=== PATIENT | male | born 1940 | race Caucasian/White ===

== ENCOUNTER 2019-05-11 07:54 | Inpatient (IN) | payer MEDICARE, OTHER, SELFPAY ==
[2019-05-11] VITALS (22 sets, daily range): BP systolic 117–167; BP diastolic 62–95; PULSE 57–80; RESP 16–20; TEMP 36.4–36.9; O2SAT 95–100; BMI 24.0
--- NOTE | ~2019-05-11 | NM_ITS ---
EXAMINATION: NM bone scan whole body DATE: 05/13/2019 15:41 INDICATION: Prostate cancer. Bone pain. TECHNIQUE: 25.4 mCi Tc-99m HDP was administered intravenously. Delayed whole-body scintigrams were o btained. COMPARISON: CT studies dated 05/29/2019 and 09/19/2018 and bone scan and CT dated 11/22/2011 FINDINGS: There is a small region of mild increased uptake at the left side of the L2 vertebral body with subtl e approximately 2.5 cm diameter region of increased sclerosis which appears new since the prior studi es concerning for metastatic disease. There are multiple foci of mild to moderate likely degenerative joint centered uptake including at the sternomanubrial articulation and bilateral sternoclavicular j oints, radial aspect of the bilateral carpi, bilateral first metacarpophalangeal joints and several j oints of the bilateral mid feet. Additional foci of increased uptake at the right elbow and posterior right calcaneus likely related to enthesopathy. Uptake anteriorly at the lower cervical spine likely related to severe degenerative disc disease as seen on CT. No other suspicious bone lesions identifi ed. Activity is seen along the peripheral IV at the left antecubital fossa. IMPRESSION: 1. New region of mildly mildly increased bone activity associated with a subtle sclerotic lesion at t he left side of the L2 vertebral body suspicious for metastatic disease. This would affect clinical m anagement could consider contrast-enhanced lumbar spine MRI for more definitive determination. Reviewed, dictated and finalized at location A. ER IMPRESSION: 1. New region of mildly mildly increased bone activity associated with a subtle sclerotic lesion at the left side of the L2 vertebral body suspicious for meta static disease. This would affect clinical management could consider contrast-e nhanced lumbar spine MRI for more definitive determination.
--- NOTE | ~2019-05-11 | CT_ITS ---
EXAMINATION: CTA chest PE protocol DATE: 05/11/2019 22:41 INDICATION: Left upper chest pain. TECHNIQUE: Computed tomography angiography (CTA) of the chest was performed with 100 mL Omnipaque-350 intravenous contrast timed to evaluate the pulmonary arteries. Coronal maximum intensity projection 3D-reconstructions were created by the technologist. Automated exposure control and iterative reconst ruction technique were employed. The dose-length product was 382.56 mGy-cm. COMPARISON: Chest CT 05/11/2019 FINDINGS: The lungs demonstrate mild atelectasis. Calcified lung nodules and calcified hilar and medi astinal lymph nodes are consistent with old granulomatous disease. No pleural effusion. There are morgan nges of right hemithyroidectomy. The heart size is normal. There are coronary artery calcifications. There is a small pericardial effusion. There is no pulmonary embolus. There are cysts in the liver me asuring up to 3.8 cm. There is contrast in the gallbladder. There is a small sliding hiatal hernia. C alcifications in the spleen are consistent with old granulomatous disease. There is confluent aortoca lisandro and left para-aortic lymphadenopathy. There is mild thoracic spondylosis. IMPRESSION: 1. No pulmonary embolus. 2. Small pericardial effusion. 3. Abdominal lymphadenopathy, consistent with metastatic disease. 4. Small sliding hiatal hernia. Reviewed, dictated and finalized at location A. RCHANGE AGENT
--- NOTE | ~2019-05-11 | XR_ITS ---
EXAMINATION: XR chest 2V 05/11/2019 08:22 INDICATION: Chest pain PROCEDURE: PA and lateral views of the chest COMPARISON: 12/17/2017 FINDINGS: The lungs are clear. The cardiomediastinal silhouette is within normal limits. There are no pleural effusions. There is no pneumothorax suspected. IMPRESSION: 1: NO ACUTE CARDIOPULMONARY DISEASE. Reviewed, dictated and finalized at location A. STORE DEMONSTRATOR
--- NOTE | ~2019-05-11 | CT_ITS ---
EXAMINATION: CTA chest abdomen pelvis DATE: 05/11/2019 09:04 MANAGER LOGISTIC INDICATION: Chest pain. Thoracic dissection. TECHNIQUE: Computed tomographic angiography (CTA) of the chest, abdomen, and pelvis was performed wit hout and with 100 mL Omnipaque-350 intravenous contrast. The dose-length product was 670.46 mGy-cm. M aximum intensity projection 3D-reconstructions of the aorta and other arteries were constructed by hector min technologist on a separate workstation. Automated exposure control and iterative reconstruction yesenia hnique were employed. COMPARISON: CT dated 09/19/2018 FINDINGS: CHEST, ABDOMEN AND PELVIS CTA: Bibasilar dependent atelectasis. Stable 4 mm right lower lobe nodule, image 65, likely benign. No foc al airspace consolidation. No evidence for aortic aneurysm or dissection. There are multiple low-dens ity lesions in the liver, compatible with cysts. Gallbladder is present. There is heterogeneous enhan cement of the spleen, likely related to the timing of contrast bolus. There has been progression of s ignificant retroperitoneal lymphadenopathy which encases the celiac axis and SMA as well as the renal arteries. There is mild right renal atrophy. There are are subcentimeter hypodensities of the left k idney, most likely benign cysts. There are radiation therapy implant seeds in the prostate bed. Bowel pattern is nonobstructive. No evidence for diverticulitis or diverticulosis. There is heterogeneous enhancing soft tissue above the radiation therapy implant seeds, suspicious for metastatic disease. T here are mildly enlarged pelvic lymph nodes along the iliac chains. IMPRESSION: 1. There has been progression of retroperitoneal lymphadenopathy and pelvic, consistent with metastat ic disease. There is encasement of the aorta, celiac axis, SMA and renal arteries. 2: Probable local tumor spread just superior to the radiation therapy implant seeds in the prostate b ed. Reviewed, dictated and finalized at location A. GER LOGISTIC IMPRESSION: 1. There has been progression of retroperitoneal lymphadenopathy and pelvic, co nsistent with metastatic disease. There is encasement of the aorta, celiac axis , SMA and renal arteries. 2: Probable local tumor spread just superior to the radiation therapy implant s eeds in the prostate bed.
--- NOTE | 2019-05-11 07:59 | ECG_ITS ---
Measurements Intervals [place] Rate: 79 P: 40 WI: 186 QRS: 16 QRSD: 91 T: 80 QT: 399 QTc: 459 Interpretive Statements SINUS RHYTHM BORDERLINE ST-T WAVE ABNORMALITY- LATERAL LEADS BORDERLINE ECG Electronically Signed On 05-11-2019 8:06:05 MAST MAKER by Al Briones D.O.
--- NOTE | 2019-05-11 08:03 | ED.CHESTPAIN ---
HPI - Chest Pain General Chief Complaint: Chest Pain Stated Complaint: cp Time Seen by Provider: 05/11/19 08:07 Source: patient Mode of arrival: ambulatory Limitations: no limitations History of Present Illness HPI narrative: A 79 y/o male presents to the ED with c/o left sided CP. Pt states that 30 minutes prior to his ED arrival, the left sided CP started while he was lying in bed. The CP is rated a 5/10 in severity. He reports SOB, lower back pain, decreased food intake, and ABD pain, but denies N/V. Pt notes that the back pain and ABD pain started the evening of 05/09/19 after playing golf and adds that he regularly plays golf. Pt states that he has had back pain and ABD pain intermittently for years, but this episode is lasting longer than normal. He has been seen for the ABD pain previously, but he did not receive a diagnosis. The lower back pain is described as sharp, squeezing, and aching and is slightly alleviated with a heating pad. Movement aggravates the lower back pain. He has a PMHx of prostate cancer, HTN, hyperlipidemia, and partial thyroidectomy. MD complaint: chest pain (Left sided) Onset (ago): minute(s) (30 prior to arrival) Timing of current episode: constant Onset: during rest Pain location: left chest Pain scale (0-10): 5 Associated symptoms: dyspnea and other (Lower back pain, ABD pain, decreased food intake) Risk Factors Coronary artery disease risk factors: smoking history (Former), hyperlipidemia and hypertension Related Data Home Medications Medication Instructions Recorded Confirmed lisinopril 5 mg tablet 5 mg PO HS 04/18/19 05/11/19 Xtandi 160 mg PO QPM 05/11/19 05/11/19 famotidine [Pepcid AC] 20 mg PO HS 05/11/19 05/11/19 terazosin 5 mg PO HS 05/11/19 05/11/19 Allergies Allergy/AdvReac Type Severity Reaction Status Date / Time lidocaine Allergy Unknown Unknown Verified 05/11/19 11:23 methylprednisolone Allergy Unknown Unknown Verified 05/11/19 11:23 LOCALANESTHETIC Allergy Unknown ALL LIZ Uncoded 05/11/19 08:09 CAUSE DECREASE BP, HR, SYNCOPE Review of Systems Review of Systems: All systems reviewed & are unremarkable except as noted in HPI and below Constitutional: Constitutional: Reports other (Decreased food intake) Cardiovascular: Cardiovascular: Reports chest pain (Left sided) Respiratory: Respiratory: Reports dyspnea Gastrointestinal: Gastrointestinal: Reports abdominal pain, Denies nausea and Denies vomiting Musculoskeletal: Musculoskeletal: Reports back pain (Lower) [facility] Past Medical History Medical History (Updated 05/12/19 @ 13:55 by Kendra Barrera PA-C) Elevated TSH GERD (gastroesophageal reflux disease) History of radiation therapy Seed implant 2013 Hypercalcemia Hyperlipidemia Hyperparathyroidism Hypertension Osteoporosis Pericardial effusion Prostate cancer Surgical History Surgical History History of thyroid surgery Partial thyroid removal. 08/2018 History of tonsillectomy Family History Family History Mother Family history of Alzheimer's disease Sibling Stomach cancer Cerebrovascular accident Type 2 diabetes mellitus Father Hypertension Hyperlipidemia Type 2 diabetes mellitus Kidney disease Social History Social History Smoking status: Former smoker Second hand tobacco smoke exposure: No Smoking end date: 04/09/1963 Alcohol intake: current Drinks per week: 5 Substance use: never Gender identity (if verbalized by the patient): Male Spiritual care concerns: Yes (Sikhism) Agree to blood products: Yes Course Consultations Consultation #1: Discussed case with the hospitalist Dr. King. They accept admission. Date: 05/11/19 Time: 10:54 Vital Signs Vital signs: Vital Signs Temperature 36.4 C 05/11/19 08:00 Pulse Rat
[2019-05-11] MEDS: ASPIRIN 81 MG CHEWABLE TABLET 324 MG PO (08:20)
[2019-05-11] MEDS: NITROGLYCERIN SL 0.4 MG TABLET SUBLINGUAL (08:25)
--- NOTE | 2019-05-11 08:25 | PC.NURSE ---
Nitro 0.4 given SL at this time, VS 80 NM, 18 RR, 99% on room air and BP 163/89. Rates pain 5/10.
[2019-05-11] MEDS: ONDANSETRON INJ 4 MG/2 ML VIAL IV PUSH (08:27)
[2019-05-11] MEDS: METOPROLOL TARTRATE INJ 5 MG/5 ML VIAL IV PUSH (08:27)
[2019-05-11] MEDS: MORPHINE SULFATE 2 MG/ML INJ 4 MG IV PUSH (08:30)
--- NOTE | 2019-05-11 08:30 | PC.NURSE ---
Patient continues to rate pain 5/10 at this time after first dose of nitro, VS 69 MD, 18 RR, 98% on room air and BP 102/67. Dr. Khanna notified and verbal order recieved to administer 500 ml NS bolus, do not given any more nitro at this time.
[2019-05-11 08:33] LABS: Basophils Percent Auto 0.2 % (0.2-1.2); Eosinophils Percent Auto 0.3 % (0-4.4); Hematocrit 40.1 % (42.0-52.0); Hemoglobin 13.9 g/dL (14.0-18.0); Immature Granulocyte Absolute 0.03 K/mm3 (0.00-0.031); Immature Granulocyte Percent A 0.5 % (0-0.5); Lymphocytes Absolute Auto 0.91 K/mm3 (0.9-3.2); Lymphocytes Percent Auto 15.3 % (18.3-44.2); Mean Corpuscular HGB Conc 34.7 g/dl (32-36); Mean Corpuscular Hemoglobin 30.8 pg (26-34); Mean Corpuscular Volume 88.9 fl (80-100); Mean Platelet Volume 9.7 fl (7.4-10.4); Monocytes Absolute Auto 0.5 K/mm3 (0.1-0.6); Monocytes Percent Auto 8.9 % (2.6-8.5); Neutrophils Absolute Auto 4.5 K/mm3 (1.3-6.7); Neutrophils Percent Auto 74.8 % (45.5-73.1); Platelet Count Result 169 k/mm3 (150-375); Red Blood Count 4.51 M/mm3 (4.6-6.20); Red Cell Distribution Width 11.6 % (11.5-14.5)
[2019-05-11 08:38] LABS: INR 1.1; Prothrombin Time 13.4 Seconds (11.1-14.7)
[2019-05-11 08:39] LABS: Partial Thromboplastin Time 24.6 SECONDS (22.3-36.8)
[2019-05-11 08:40] LABS: Blood Urea Nitrogen 21 mg/dL (9-20); Calcium 10.7 mg/dL (8.4-10.2); Carbon Dioxide 25 mmol/L (22-30); Chloride 100 mmol/L (98-107); Estimated CRCL calculation 65 ml/min; Estimated Glomerular Filt Rate > 60; Glucose 112 mg/dL (75-110); Sodium 135 mmol/L (137-145)
[2019-05-11] MEDS: SODIUM CHLORIDE 0.9% IV 500 ML (08:42)
[2019-05-11 08:45] LABS: Alanine Aminotransferase 11 U/L (4-50); Albumin Level 3.8 g/dL (3.5-5.1); Alkaline Phosphatase 87 U/L (38-126); Aspartate Amino Transferase 22 U/L (17-59); Bilirubin,Total 0.9 mg/dL (0.2-1.3)
[2019-05-11 08:47] LABS: Blood Urea Nitrogen 19 mg/dL (8-26); Estimated CRCL calculation 59 ml/min; Estimated Glomerular Filt Rate > 60
[2019-05-11 08:52] LABS: Troponin I < 0.012 ng/mL (0.000-0.034)
[2019-05-11 09:16] LABS: Add Urine Microscopic? YES; Appearance Urine Clear (Clear); Bilirubin Urine Negative (Negative); Blood Urine Negative (Negative); Color Urine Yellow (Yellow); Glucose Urine UA Negative (Negative); Ketones Urine 1+ mg/dL (Negative); Leukocyte Esterase Ur Negative LEU/UL (Negative); Mucus Urine Few /lpf; Nitrate Urine Negative (Negative); Protein Urine Negative (Negative); RBC Urine 0-2 /hpf (0-2); Specific Grav Ur 1.028 (1.001-1.035); Urobilinogen Urine Negative mg/dL (<2.0); WBC Urine 0-3 /hpf
[2019-05-11] MEDS: MORPHINE SULFATE 4 MG/ML INJ IV PUSH (10:12)
--- NOTE | 2019-05-11 10:28 | PC.NURSE ---
Pulse ox noted to be 84% on room air after administering morphine, placed patient on oxygen 2 Li NC at this time with current oxygen level of 95% at this time.
--- NOTE | 2019-05-11 11:05 | ADMGEN ---
This patient, Steve Ritter, was admitted to IMU Room 202-. Patient/family oriented to hospital policies and general routines including ID bracelet, bed and alarms, visiting hours, pain management, procedures, bathroom and other care routines, personal items, smoking policy, room service/diet, and visiting hours. Valuables list has been completed. Information on how to activate the Rapid Response Team has been discussed. Patient/Family are encouraged to report perceived risks to care and to ask questions if they do not understand what they are told or what they should do.
[2019-05-11 12:25] LABS: Troponin I < 0.012 ng/mL (0.000-0.034)
[2019-05-11] MEDS: ENOXAPARIN 80 MG/0.8 ML SYRINGE SUB-Q (12:55)
--- NOTE | 2019-05-11 12:59 | ECG_ITS ---
Measurements Intervals [place] Rate: 68 P: 52 SC: 216 QRS: 33 QRSD: 93 T: 67 QT: 423 QTc: 451 Interpretive Statements SINUS RHYTHM WITH FIRST DEGREE AV BLOCK BORDERLINE ST-T WAVE ABNORMALITY- LATERAL LEADS ABNORMAL ECG Electronically Signed On 05-11-2019 14:22:38 TECHNOLOGIST DEVELOPMENT by Al Briones D.O.
[2019-05-11] MEDS: HYDROMORPHONE HCL 1 MG/ML INJ 0.5 MG IV PUSH ×3 (14:44→22:12)
[2019-05-11 15:07] LABS: Troponin I < 0.012 ng/mL (0.000-0.034)
--- NOTE | 2019-05-11 21:05 | ECG_ITS ---
Measurements Intervals [place] Rate: 74 P: 45 TN: 195 QRS: 14 QRSD: 90 T: 45 QT: 406 QTc: 451 Interpretive Statements SINUS RHYTHM VENTRICULAR PREMATURE COMPLEX NONSPECIFIC T-WAVE ABNORMALITY- INF/LAT LEADS BASELINE ARTIFACT- I, III BORDERLINE ECG Electronically Signed On 05-12-2019 9:04:15 DIRECTOR OUTCOMES by Al Briones D.O.
[2019-05-11 21:39] LABS: Lipase 209 U/L (23-300)
[2019-05-11 21:40] LABS: D Dimer 1.54 ug/mL (<0.48)
--- NOTE | 2019-05-11 22:08 | PM.IMHP ---
H&P: HPI History of Present Illness Chief complaint: chest pain/prostatic cancer w intra abdominal mest Narrative: This is a 79-year-old male with known metastatic prostate cancer that was originally diagnosed in 2003 for which he follows up with Urology, Dr. Colon at [facility] and who presented to our hospital with sharp left-sided chest pain earlier today. The patient describes that his chest pain started while he was laying in bed and seems to worsen with deep breathing although it does not radiate anywhere. He denies any associated nausea, diaphoresis, shortness of breath, or lightheadedness. The patient also complains that he is having diffuse abdominal and lower back pain which he states his chronic. He has had intermittent diffuse abdominal pain as well as low back pain over the past few years. The patient denies any previous history of heart disease or previous myocardial infarctions. His last stress test was last year and he has never had a cardiac angiogram done before. The patient was evaluated emergency room today and routine labs were obtained. Negative and EKG is unremarkable. The patient continues to have left-sided chest pain and has required multiple doses of IV narcotic medication for pain control tonight. Demonstrated worsening metastatic disease. The patient has been admitted for cardiac rule out. He denies any other symptoms at this time. Review of Systems Review of Systems: All systems reviewed & are unremarkable except as noted in HPI and below PMFSH Past Medical History Medical History Elevated TSH GERD (gastroesophageal reflux disease) History of radiation therapy Seed implant 2013 Hypercalcemia Hyperlipidemia Hyperparathyroidism Hypertension Osteoporosis Prostate cancer Surgical History Surgical History History of thyroid surgery Partial thyroid removal. 08/2018 History of tonsillectomy Family History Family History Mother Family history of Alzheimer's disease Sibling Stomach cancer Cerebrovascular accident Type 2 diabetes mellitus Father Hypertension Hyperlipidemia Type 2 diabetes mellitus Kidney disease Social History Social History Smoking status: Former smoker Second hand tobacco smoke exposure: No Smoking end date: 04/09/1963 Alcohol intake: current Drinks per week: 5 Substance use: never Gender identity (if verbalized by the patient): Male Spiritual care concerns: Yes (Sikh) Agree to blood products: Yes Meds Home Medications and Allergies Home Medications Medication Instructions Recorded Confirmed Type lisinopril 5 mg tablet 5 mg PO HS 04/18/19 05/11/19 History enzalutamide [Xtandi] 160 mg PO QPM 05/11/19 05/11/19 History famotidine [Pepcid AC] 20 mg PO HS 05/11/19 05/11/19 History terazosin 5 mg PO HS 05/11/19 05/11/19 History Allergies Allergy/AdvReac Type Severity Reaction Status Date / Time lidocaine Allergy Unknown Unknown Verified 05/11/19 11:23 methylprednisolone Allergy Unknown Unknown Verified 05/11/19 11:23 LOCALANESTHETIC Allergy Unknown ALL LIZ Uncoded 05/11/19 08:09 CAUSE DECREASE BP, HR, SYNCOPE Vital Signs Vital Signs - 24 hr 05/11/19 08:00 05/11/19 08:10 05/11/19 08:27 Temperature 36.4 C Pulse Rate 79 78 80 Respiratory Rate 17 Blood Pressure 167/94 H Pulse Oximetry 99 05/11/19 09:03 05/11/19 09:05 05/11/19 09:39 Temperature 36.4 C Pulse Rate 57 L 62 Respiratory Rate 18 16 Blood Pressure 134/70 154/85 H Pulse Oximetry 100 100 05/11/19 10:12 05/11/19 10:45 05/11/19 11:00 Temperature 36.4 C Pulse Rate 62 63 Respiratory Rate 17 16 Blood Pressure 153/79 H 148/75 H Pulse Oximetry 96 95 05/11/19 11:21 05/11/19 12:00 05/11/19
[2019-05-12] VITALS (11 sets, daily range): BP systolic 133–146; BP diastolic 67–81; PULSE 71–99; RESP 12–20; TEMP 36.6–36.9; O2SAT 97–98
[2019-05-12] MEDS: ENOXAPARIN 80 MG/0.8 ML SYRINGE SUB-Q (00:34)
[2019-05-12] MEDS: HYDROMORPHONE HCL 1 MG/ML INJ 0.5 MG IV PUSH ×4 (04:19→18:10)
[2019-05-12 05:12] LABS: Basophils Percent Auto 0.1 % (0.2-1.2); Hematocrit 39.2 % (42.0-52.0); Hemoglobin 13.3 g/dL (14.0-18.0); Immature Granulocyte Absolute 0.04 K/mm3 (0.00-0.031); Immature Granulocyte Percent A 0.5 % (0-0.5); Lymphocytes Absolute Auto 0.98 K/mm3 (0.9-3.2); Mean Corpuscular HGB Conc 33.9 g/dl (32-36); Mean Corpuscular Hemoglobin 30.7 pg (26-34); Mean Corpuscular Volume 90.5 fl (80-100); Monocytes Absolute Auto 0.9 K/mm3 (0.1-0.6); Monocytes Percent Auto 11.4 % (2.6-8.5); Neutrophils Absolute Auto 5.7 K/mm3 (1.3-6.7); Platelet Count Result 167 k/mm3 (150-375); Red Blood Count 4.33 M/mm3 (4.6-6.20); Red Cell Distribution Width 11.7 % (11.5-14.5); White Blood Count 7.5 K/mm3 (4.5-10.0)
[2019-05-12 05:24] LABS: Blood Urea Nitrogen 22 mg/dL (9-20); Calcium 10.3 mg/dL (8.4-10.2); Carbon Dioxide 28 mmol/L (22-30); Chloride 101 mmol/L (98-107); Estimated CRCL calculation 59 ml/min; Estimated Glomerular Filt Rate > 60; Glucose 98 mg/dL (75-110); Sodium 137 mmol/L (137-145)
--- NOTE | 2019-05-12 06:00 | ECG_ITS ---
Measurements Intervals [place] Rate: 78 P: 48 VT: 187 QRS: 31 QRSD: 89 T: 78 QT: 390 QTc: 445 Interpretive Statements SINUS RHYTHM BORDERLINE ST-T WAVE ABNORMALITY- DIFFUSE LEADS BASELINE ARTIFACT- AVR, AVL, AVF BORDERLINE ECG Electronically Signed On 05-12-2019 9:38:36 COFFEE ROASTER HELPER by Al Briones D.O.
--- NOTE | 2019-05-12 08:44 | ECHO_ITS ---
Patient Info Name: Steve Ritter Age: 79 years : 1940 Gender: Male Ht: 72 in Wt: 178 lbs BSA: 2.03 m2 HR: 75 bpm BP: 133 / 72 mmHg Heart Rhythm: Sinus Rhythm Technical Quality: Fair Exam Date: 05/12/2019 9:56 AM Exam Location: [facility] Patient Status: Inpatient Admit Date: 05/11/2019 Staff Ordering Physician: Aris Lin MD Crisis Counselor: Stevie Moyer RDCS Attending Provider: Kendra Barrera PA-C Referring Physician: Riley CRAR; Exam Type: CA echo doppler color flow Study Info Indications I31.3 - Pericardial effusion (noninflammatory) Complete two-dimensional, color flow and Doppler transthoracic echocardiogram is performed. History/Risk Factors Pericardial effusion; prostatce cancer, chest pain, HTN. Summary 1. Left ventricular chamber dimension is normal. 2. Left ventricular systolic function is normal, estimated at 65-70%. 3. There is mildly increased left ventricular wall thickness. 4. Left ventricular septal wall motion is normal. 5. The left ventricular diastolic function is grade I diastolic dysfunction. 6. Left atrial chamber dimension is mildly enlarged. 7. There is mild mitral valve regurgitation. 8. There is mild tricuspid valve regurgitation. 9. There is small pericardial effusion. Left Ventricle Left ventricular chamber dimension is normal. Left ventricular systolic function is normal, estimated at 65-70%. There is mildly increased left ventricular wall thickness. Left ventricular septal wall motion is normal. The left ventricular diastolic function is grade I diastolic dysfunction. Right Ventricle Right ventricular chamber dimension is normal. Right ventricular systolic function is normal. Left Atria Left atrial chamber dimension is mildly enlarged. Right Atria Right atrial chamber dimension is normal. Aortic Valve The aortic valve is trileaflet. There is mild aortic valve sclerosis. There is no aortic valve stenosis. There is trace aortic valve regurgitation. Pulmonic Valve The pulmonic valve is not well visualized. There is no pulmonic valve stenosis. There is trace pulmonic regurgitation. Mitral Valve The mitral valve has calcified annulus. There is no mitral valve stenosis. There is mild mitral valve regurgitation. Tricuspid Valve The tricuspid valve leaflets are normal. There is no significant tricuspid valve stenosis. There is mild tricuspid valve regurgitation. No pulmonary hypertension, estimated pulmonary arterial systolic pressure is 32 mmHg. Pericardium/Pleural The pericardium appears normal. There is small pericardial effusion. Aorta The aortic root size at the sinus of Valsalva is normal. Left Ventricular Outflow Tract Name Value Normal LVOT 2D LVOT Diameter 2.0 cm LVOT Doppler LVOT Peak Gradient 5 mmHg LVOT Mean Gradient 2 mmHg LVOT VTI 20 cm LVOT VTI/AV VTI Ratio 0.8 LVOT Stroke Volume 61 ml LVOT CO
--- NOTE | 2019-05-12 08:44 | PM.CNCAR ---
Assessment and Plan Assessment and plan (1) Hypertension: Qualifiers: Hypertension type: unspecified Qualified Code(s): I10 - Essential (primary) hypertension Code(s): I10 - Essential (primary) hypertension Status: Chronic Assessment and Plan: On lisinopril (2) Chest pain: Qualifiers: Chest pain type: unspecified Qualified Code(s): R07.9 - Chest pain, unspecified Code(s): R07.9 - Chest pain, unspecified Status: Acute Assessment and Plan: Reproducible to push on his left side of his chest. Unlikely cardiac. Discontinue treatment dose of Lovenox. Start Lovenox 40 mg subcu daily (3) Prostate cancer metastatic to intraabdominal lymph node: Code(s): C61 - Malignant neoplasm of prostate; C77.2 - Secondary and unspecified malignant neoplasm of intra-abdominal lymph nodes Status: Acute Assessment and Plan: Followed by Dr. Ann (4) Pericardial effusion: Code(s): I31.3 - Pericardial effusion (noninflammatory) Status: Acute Assessment and Plan: Will order a 2D echocardiogram Doppler to evaluate significance of his small pericardial effusion. History of Present Illness History of Present Illness Consult date/time: 05/12/19 08:44 Requesting physician: Prem Mathew MD Consult reason: chest pain Reason For Visit: chest pain/prostatic cancer w intra abdominal mest Narrative: Date of service 05/12/2019: History: patient is a 79-year-old male who was admitted because of chest pain. His metastatic prostate cancer and has been having some abdominal and back pain also. A 720 yesterday he started developed some left-sided chest pain which is sharp. It was not associated with any nausea, shortness of breath or diaphoresis. It was not positional. It did not radiate into his arm back neck or shoulder. He would get some relief with morphine. Symptoms last for at least several minutes. There is also having some abdominal and back pain also. CT scan of the chest/abdomen shows small pericardial effusion and abdominal lymphadenopathy consistent with metastatic disease. He still is having intermittent pain this morning. He denies any recent shortness of breath, paroxysmal nocturnal dyspnea, orthopnea, edema, syncope. He does have will dizziness upon standing. No palpitations. EKG is unremarkable and troponins are negative to this point. Review of Systems Review of Systems: All systems reviewed & are unremarkable except as noted in HPI and below Constitutional: Constitutional: Denies weakness Eyes: Eyes: Denies blurry vision ENT: Denies epistaxis Cardiovascular: Cardiovascular: Reports chest pain Respiratory: Respiratory: Denies dyspnea Gastrointestinal: Gastrointestinal: Reports abdominal pain Genitourinary: Genitourinary: Denies urinary frequency Musculoskeletal: Musculoskeletal: Reports back pain Integumentary/Breasts: Skin/Breast: Denies dry skin Neurologic: Denies headache(s) Psychiatric: Psychiatric: Denies anxiety Endocrine: Endocrine: Denies excessive sweating Hematologic/Lymphatic: Hematologic/Lymphatic: Denies easy bleeding Allergic/Immunologic: Allergic/Immunologic: Denies GI upset with certain foods PMFSH Past Medical History Medical History Elevated TSH GERD (gastroesophageal reflux disease) History of radiation therapy Seed implant 2013 Hypercalcemia Hyperlipidemia Hyperparathyroidism Hypertension Osteoporosis Prostate cancer Surgical History Surgical History History of thyroid surgery Partial thyroid removal. 08/2018 History of tonsillectomy Family History Family History Mother Family history of Alzheimer's disease Sibling Stomach cancer Cerebrovascular accident Type 2 diabetes mellitus Father Hypertension Hyp
[2019-05-12] MEDS: ASPIRIN 81 MG CHEWABLE TABLET PO (09:15)
[2019-05-12] MEDS: ENOXAPARIN 40 MG/0.4 ML SYRINGE SUB-Q (09:28)
--- NOTE | 2019-05-12 11:10 | PHAR ---
The patient's home med of Xrandi (enzalutamide) 40mg has been verified. Rn advised of handling instructions and cardiac side effects.
--- NOTE | 2019-05-12 13:04 | PM.IMPN ---
Progress Note: A&P Assessment and Plan (1) Chest pain: Qualifiers: Chest pain type: unspecified Qualified Code(s): R07.9 - Chest pain, unspecified Code(s): R07.9 - Chest pain, unspecified Status: Acute Assessment and Plan: Left-sided chest pain began yesterday and woke him up out of sleep; reproducible on exam and appears muskuloskeletal in nature. Troponin negative x 3. Discussed case with Dr Lin; ACS unlikely. Spoke with pharmacist about his Xtandi and noted that up to 20% of patients on Xtandi have reported musculoskeletal pain as a side effect. He has been on Xtandi since November with no issues thus far. Medication side effect vs. pain from metastasis? The latter is most likely. Discussed case with Dr Kelly who recommends continuing Xtandi. Agreed that it is much more likely his pain is secondary to metastasis than as a drug side effect, and the patient would benefit from continuing Xtandi. He noted there really are not any other recommendations from a urologic standpoint other than an oncology consult. Consult to Dr. Pacheco by Dr. Kelly's recommendation - appreciate input regarding prognosis and pain control. Bone scan? (2) Prostate cancer metastatic to intraabdominal lymph node: Code(s): C61 - Malignant neoplasm of prostate; C77.2 - Secondary and unspecified malignant neoplasm of intra-abdominal lymph nodes Status: Acute Assessment and Plan: Known advanced metastatic prostate cancer for which he has been following with Dr Ramón Carranza; last saw Dr Carranza in the office 03/13/19 at which time he recommended patient and family meet with [facility]. His notes they did meet with [facility] but were not interested in hospice at that time. I held a detailed discussion about hospice today with patient and his . When asked if they would be interested in speaking with a hopsice internet sales representative here at the hospital, patient responds The only thing I want to talk about is my pain. Has been on Xtandi since 11/2018. He is having significant pain to left chest and abdomen. I have scheduled oxycodone and dilaudid is available for breakthrough pain for now and appreciate Dr. Pacheco's recommendations. (3) Pericardial effusion: Code(s): I31.3 - Pericardial effusion (noninflammatory) Status: Acute Assessment and Plan: Small pericardial effusion noted on CT. Dr. Lin has ordered echocardiogram, appreciate his input. (4) GERD (gastroesophageal reflux disease): Qualifiers: Esophagitis presence: esophagitis presence not specified Qualified Code(s): K21.9 - Gastro-esophageal reflux disease without esophagitis Code(s): K21.9 - Gastro-esophageal reflux disease without esophagitis Status: Chronic Assessment and Plan: Continue home Pepcid. (5) Hypertension: Qualifiers: Hypertension type: unspecified Qualified Code(s): I10 - Essential (primary) hypertension Code(s): I10 - Essential (primary) hypertension Status: Chronic Assessment and Plan: BP stable. Continue home lisinopril. (6) DVT prophylaxis: Code(s): Z29.9 - Encounter for prophylactic measures, unspecified Status: Acute Assessment and Plan: Lovenox Subjective Date/time seen: 05/12/19 1130 Interval history: Mr. Ritter is a 79yo M with known diagnosis of advanced metastatic prostate cancer admitted for evaluation of chest pain. He describes a sharp aching left-sided chest pain that woke him up out of his sleep yesterday morning. It is intermittent, does not radiate and is reproducible to palpation. He denies feeling short of breath. He describes left-sided abdominal pain that is worse after eating, which has been going on for while and not any worse now than it has been before.
--- NOTE | 2019-05-12 15:21 | PC.NURSE ---
This patient, Steve Ritter, was received from [[facility] ] on 05/12/19 at 1522. Personal belongings list checked and signed. Patient/family oriented to unit policies and routines
--- NOTE | 2019-05-12 15:48 | WPDURCON ---
Assessment and Plan Assessment and plan (1) Prostate cancer metastatic to intraabdominal lymph node: Code(s): C61 - Malignant neoplasm of prostate; C77.2 - Secondary and unspecified malignant neoplasm of intra-abdominal lymph nodes Status: Acute Assessment and Plan: CT scan has been reviewed. He has advancement of his metastatic prostate cancer with intraperitoneal lymph nodes. He also has locally advanced prostate cancer the prostatic bed. There is clinical concern for bony metastasis to the rib. His last bone scan in December 2018 was negative per report. At this point I would recommend consultation with Medical Oncology. May benefit from bone scan. If metastatic disease to the bones is discovered may benefit from palliative radiation therapy. I will inform Dr. Carranza his admission. Urology Consult Note HPI Date Seen: 05/12/19 Requesting Physician: GÉNESIS Rogers Primary Care Provider: Prem Godfrey, Consult Narrative Narrative: Steve Ritter is a 79 year old male. He is seen by my partner Dr. Ramón Carranza. He has locally advanced and metastatic prostate cancer. He has lymphadenopathy in his abdomen. He was originally treated with brachytherapy. He has been treated recently with Xabndi as a chemotherapeutic agent. His most recent bone scan in December of 2018 was negative for bony metastatic disease. He comes in with left-sided chest pain. Cardiac etiology has thus far been ruled out. It appears to be musculoskeletal in nature. There is clinical concern for metastatic disease to the rib as the cause of this pain. He states it is somewhat improved. He also notes low back pain and ?intestinal pain?. He has no voiding symptoms. Review of Systems Review of Systems: All systems reviewed & are unremarkable except as noted in HPI and below Constitutional: Constitutional: Reports body ache(s) Gastrointestinal: Gastrointestinal: Denies nausea Genitourinary: Genitourinary: Denies dysuria Musculoskeletal: Musculoskeletal: Reports back pain and Reports arthralgias [facility] Past Medical History Medical History (Updated 05/12/19 @ 13:55 by Kendra Barrera PA-C) Elevated TSH GERD (gastroesophageal reflux disease) History of radiation therapy Seed implant 2013 Hypercalcemia Hyperlipidemia Hyperparathyroidism Hypertension Osteoporosis Pericardial effusion Prostate cancer Surgical History Surgical History History of thyroid surgery Partial thyroid removal. 08/2018 History of tonsillectomy Family History Family History Mother Family history of Alzheimer's disease Sibling Stomach cancer Cerebrovascular accident Type 2 diabetes mellitus Father Hypertension Hyperlipidemia Type 2 diabetes mellitus Kidney disease Social History Social History Smoking status: Former smoker Second hand tobacco smoke exposure: No Smoking end date: 04/09/1963 Alcohol intake: current Drinks per week: 5 Substance use: never Gender identity (if verbalized by the patient): Male Spiritual care concerns: Yes (Anabaptist) Agree to blood products: Yes Meds Home Medications and Allergies Home Medications Medication Instructions Recorded Confirmed Type lisinopril 5 mg tablet 5 mg PO HS 04/18/19 05/11/19 History enzalutamide [Xtandi] 160 mg PO QPM 05/11/19 05/11/19 History famotidine [Pepcid AC] 20 mg PO HS 05/11/19 05/11/19 History terazosin 5 mg PO HS 05/11/19 05/11/19 History Allergies Allergy/AdvReac Type Severity Reaction Status Date / Time lidocaine Allergy Unknown Unknown Verified 05/11/19 11:23 methylprednisolone Allergy Unknown Unknown Verified 05/11/19 11:23 LOCALANESTHETIC Allergy Unknown ALL LIZ Uncoded 05/11/19 08:09 CAUSE DECREASE BP, HR, SYNCOPE Vital Sign
[2019-05-12] MEDS: lisinopriL 5 MG TABLET PO (20:46)
[2019-05-12] MEDS: FAMOTIDINE 20 MG TABLET PO (20:46)
[2019-05-12] MEDS: TERAZOSIN HCL 5 MG CAPSULE PO (20:46)
[2019-05-13] VITALS (7 sets, daily range): BP systolic 129–135; BP diastolic 63–73; PULSE 73–99; RESP 16; TEMP 37.1; O2SAT 94–97
[2019-05-13] MEDS: ENOXAPARIN 40 MG/0.4 ML SYRINGE SUB-Q (09:28)
[2019-05-13] MEDS: ASPIRIN 81 MG CHEWABLE TABLET PO (09:28)
--- NOTE | 2019-05-13 11:45 | PM.PNCARD ---
Progress Note: A&P Assessment and Plan (1) Hypertension: Qualifiers: Hypertension type: unspecified Qualified Code(s): I10 - Essential (primary) hypertension Code(s): I10 - Essential (primary) hypertension Status: Chronic Assessment and Plan: On lisinopril (2) Chest pain: Qualifiers: Chest pain type: unspecified Qualified Code(s): R07.9 - Chest pain, unspecified Code(s): R07.9 - Chest pain, unspecified Status: Acute Assessment and Plan: Reproducible to push on his left side of his chest. Unlikely cardiac. (3) Prostate cancer metastatic to intraabdominal lymph node: Code(s): C61 - Malignant neoplasm of prostate; C77.2 - Secondary and unspecified malignant neoplasm of intra-abdominal lymph nodes Status: Acute Assessment and Plan: Followed by Dr. Ann (4) Pericardial effusion: Code(s): I31.3 - Pericardial effusion (noninflammatory) Status: Acute Assessment and Plan: No significant pericardial effusion Okay for discharge from cardiac perspective Subjective Date/time seen: 05/13/19 11:45 Interval history: Mr. Ritter is a 79yo M with known diagnosis of advanced metastatic prostate cancer admitted for evaluation of chest pain. Date of service 05/13/2019: He continues to have some left-sided chest pain that is mild. No shortness of breath. Echocardiogram was unremarkable. Review of Systems Review of Systems: All systems reviewed & are unremarkable except as noted in HPI and below Constitutional: Constitutional: Denies excessive sweating, Denies headache(s) and Denies weakness Eyes: Eyes: Denies blurry vision ENT: Denies headache(s) and Denies epistaxis Cardiovascular: Cardiovascular: Reports chest pain and Denies dyspnea Respiratory: Respiratory: Denies dyspnea Gastrointestinal: Gastrointestinal: Reports abdominal pain Genitourinary: Genitourinary: Denies urinary frequency Musculoskeletal: Musculoskeletal: Reports back pain Integumentary/Breasts: Skin/Breast: Denies dry skin Neurologic: Denies headache(s) and Denies weakness Psychiatric: Psychiatric: Denies anxiety Endocrine: Endocrine: Denies excessive sweating Hematologic/Lymphatic: Hematologic/Lymphatic: Denies easy bleeding Allergic/Immunologic: Allergic/Immunologic: Denies GI upset with certain foods Exam Narrative: Exam Narrative: Alert and oriented. Appears in no acute distress Const: General: comfortable HENMT: General nose exam: Normal nares present Eyes: Sclera: sclerae normal Neck: Neck: supple and no JVD Chest: Other: Patient does have reproducible chest wall to palpate his left lateral thorax Resp: Auscultation: clear to auscultation bilaterally Cardio: Rhythm: regular rhythm Skin: General skin exam: normal color Neuro: General: gait normal Speech: normal speech Extrem: General: normal to inspection, normal exam except as noted, no edema and no pedal edema Psych: Mental Status: mental status grossly normal Objective Data Vital Signs Vital Signs: Vital Signs - 24 hr 05/12/19 12:00 05/12/19 14:00 05/12/19 16:00 Temperature 36.6 C Pulse Rate 85 71 87 Respiratory Rate 12 Blood Pressure 134/67 Pulse Oximetry 97 05/12/19 20:00 05/12/19 21:47 05/13/19 00:00 Temperature 36.9 C Pulse Rate 76 71 78 Respiratory Rate 18 Blood Pressure 146/81 H Pulse Oximetry 97 05/13/19 04:00 05/13/19 05:14 Temperature 37.1 C Pulse Rate 85 77 Respiratory Rate 16 Blood Pressure 129/63 Pulse Oximetry 97 Intake/Output Intake/Output: Intake & Output 05/10/19 05/11/19 05/12/19 05/13/19 23:59 23:59 23:59 23:59 Intake Total 600 536 200 Output Total 1200 Balance 600 -664 200 Meds/Results Medications: Active Medications Generic Name Dose Route Start Last Admin Trade Name Freq PRN Reason Stop Dose Admin Acetaminophen 650 mg 05/11/19 21:06 Tylenol Tablet PO
--- NOTE | 2019-05-13 17:01 | PM.DS ---
DS: Diagnosis Admitting Diagnosis Admitting Diagnosis: Chest pain, unspecified Discharge Diagnosis (1) Chest pain: Qualifiers: Chest pain type: unspecified Qualified Code(s): R07.9 - Chest pain, unspecified Code(s): R07.9 - Chest pain, unspecified Status: Acute Assessment and Plan: Left-sided chest pain began day of admission and woke him up out of sleep; reproducible on exam and appears muskuloskeletal in nature. Troponin negative x 3. ACS unlikely, cardiology did see the patient Previous provider spoke with pharmacist about his Xtandi and noted that up to 20% of patients on Xtandi have reported musculoskeletal pain as a side effect. He has been on Xtandi since November with no issues thus far. Medication side effect vs. pain from metastasis? Bone scan did not show a lesion there currently. Discussed case with Dr Kelly who recommends continuing Xtandi. Agreed that it is much more likely his pain is muscular skeletal Consult to Dr. Pacheco by Dr. Kelly's recommendation - will continue to see outpatient. (2) Prostate cancer metastatic to intraabdominal lymph node: Code(s): C61 - Malignant neoplasm of prostate; C77.2 - Secondary and unspecified malignant neoplasm of intra-abdominal lymph nodes Status: Acute Assessment and Plan: Known advanced metastatic prostate cancer for which he has been following with Dr Ramón Carranza; last saw Dr Carranza in the office 03/13/19 at which time he recommended patient and family meet with [facility]. His notes they did meet with [facility] but were not interested in hospice at that time. Has been on Xtandi since 11/2018. He is having significant pain to left chest and abdomen. Pt given pain meds to go home on (3) Pericardial effusion: Code(s): I31.3 - Pericardial effusion (noninflammatory) Status: Acute Assessment and Plan: Small pericardial effusion noted on CT. No current issues with this. Cardiology feels this is unrelated to pain. I agree, MS seems more likely. (4) GERD (gastroesophageal reflux disease): Qualifiers: Esophagitis presence: esophagitis presence not specified Qualified Code(s): K21.9 - Gastro-esophageal reflux disease without esophagitis Code(s): K21.9 - Gastro-esophageal reflux disease without esophagitis Status: Chronic Assessment and Plan: Continue home Pepcid. (5) Hypertension: Qualifiers: Hypertension type: unspecified Qualified Code(s): I10 - Essential (primary) hypertension Code(s): I10 - Essential (primary) hypertension Status: Chronic Assessment and Plan: BP stable. Continue home lisinopril. (6) DVT prophylaxis: Code(s): Z29.9 - Encounter for prophylactic measures, unspecified Status: Acute DS: Summary Hospital Course Reason for hospitalization: Chest pain Hospital Course: Patient is a 79-year-old male who presented emergency room for chest pain. Temperature 36.4?, pulse 79, respiratory rate 17, blood pressure 167/94, pulse ox 99 on room air. White blood cell count 6.0. Chest x-ray showed no acute pulmonary disease. Chest abdomen pelvis CTA does not show any clot but did show progression of retroperitoneal lymphadenopathy and pelvic consistent with metastatic disease. There is also encasement of the aorta, celiac axis, SMA and renal arteries. There also is probable local tumor spread of the prostate bed. EKG reviewed which showed sinus rhythm and old [place] but no acute issues. Troponins negative x3. Lipase normal. Patient was admitted to the hospitalist service and observed. Cardiology did see the patient in echo was done. Did not think that this was cardiac related and did believe this was muscular skeletal. The patient had been golfing a few days prior to admission. A bone scan was done to ensure there is no metastatic disease at that spot which there was not. It did show L to lesion which was likel
--- NOTE | 2019-05-13 19:49 | CONS_ITS ---
DATE OF CONSULTATION: 05/13/2019 REASON FOR CONSULTATION: Metastatic prostate cancer. HISTORY OF PRESENTING ILLNESS: This is a pleasant 79-year-old male, who was diagnosed to have early stage prostate cancer in 2006. He had initial treatment with brachytherapy. Subsequently in 2011, the patient was started on treatment with hormonal therapy due to rising PSA. In November 2018, the patient had a bone scan done that showed no evidence of metastatic disease, but the CT scan showed retroperitoneal lymphadenopathy and was started on Xtandi treatment. He came into the hospital with generalized musculoskeletal pain and especially abdominal pain. He denies any recent weight loss, but previously had lost more than 50-pound weight. He denies any hematuria or dysuria. He denies any other new complaints. REVIEW OF SYSTEMS: A 12-point review of system was reviewed and as per HPI, otherwise negative. PAST MEDICAL HISTORY: Metastatic prostate cancer, osteoporosis, hypertension, hyperparathyroidism, hyperlipidemia, hypercalcemia, GERD, and elevated TSH. PAST SURGICAL HISTORY: Thyroidectomy and tonsillectomy. FAMILY HISTORY: Sibling has stomach cancer. Has history of diabetes in the family. SOCIAL HISTORY: Denies any recent history of smoking. The patient drinks almost 5 drinks per week. He is . MEDICATION: Reviewed. ALLERGIES: REVIEWED. PHYSICAL EXAMINATION: GENERAL: This patient is a well-developed, well-nourished male, in no apparent distress, oriented x3. VITAL SIGNS: Per nursing note. HEENT: Normocephalic, atraumatic. Clear oropharynx. LUNGS: Clear to auscultation bilaterally. CARDIOVASCULAR: Regular rate and rhythm. No murmur. ABDOMEN: Soft. Mid epigastric tenderness. Bowel sounds are positive. No hepatosplenomegaly. EXTREMITIES: No edema. NEURO: Exam is grossly intact. LABORATORY DATA: WBC 7.5, hemoglobin 13.3, platelet 167,000, neutrophils 75%, and lymphocytes 13%. INR 1.1, creatinine 1.0, potassium 4.0, and calcium 10.3. ASSESSMENT AND PLAN: 1. Metastatic prostate cancer. He was initially diagnosed in 2006, status post brachytherapy. Subsequently, he was started on hormonal therapy with estrogen in 2011 due to rising PSA. In November 2018, he was started on Xtandi due to abdominal lymphadenopathy. He came into the hospital with generalized pain. A bone scan was ordered on May 13, 2019, that showed new region of increased uptake with a sclerotic lesion in the left side of the L2 vertebral body suspicious for metastatic disease. PSA has been ordered and pending. I have informed this patient to follow up with me in the office as he will be discharged today. We will make recommendation based on this finding and PSA level for further management that could include continuation of hormonal therapy versus chemotherapy. I have answered all the questions to the patient's and the 's satisfaction. 2. Bone disease. The patient will start treatment with Xgeva. Based on the pain control, he may need radiation therapy treatment. I have answered all the questions to the patient's satisfaction. HALEY RED M.D. [employer] VALVE REPAIRER CY[employer]VE REPAIRER D Kirti MT: Gabi
== END 2019-05-13 18:00 | disposition home or self-care (01) | DRG 313 ==
LOC: ANHED 10:21 → ANHIMU 10:27 → ANH3MEDSUR 05-13 07:27 → ANHIMU 05-15 13:24
PROVIDERS: Family Medicine; Admitting Provider Family Medicine; Emergency Provider Emergency Medicine; PCP Internal Medicine; Visit Provider Family Medicine
DX: R07.89 Other chest pain (principal); C77.2 Secondary and unspecified malignant neoplasm of intra-abdominal lymph nodes; I31.3 Pericardial effusion (noninflammatory); C61 Malignant neoplasm of prostate; K21.9 Gastro-esophageal reflux disease without esophagitis; I10 Essential (primary) hypertension; E78.5 Hyperlipidemia, unspecified; E21.3 Hyperparathyroidism, unspecified; E83.52 Hypercalcemia; M81.0 Age-related osteoporosis without current pathological fracture; Z85.46 Personal history of malignant neoplasm of prostate; Z87.891 Personal history of nicotine dependence
CPT/HCPCS: 36415; 71046; 71275; 74174; 78306; 80048; 80053; 81001; 83690; 84484; 85025; 85380; 85610; 85730; 93005; 93306; 96361; 96372; 96374; 96375; 96376; 99285; A9270; A9561; G0378; J1170; J1650; J2270; J2405; J7040; Q9967

== ENCOUNTER 2020-06-22 11:43 | Outpatient (CLI) | payer MEDICARE, OTHER, SELFPAY | END 2020-06-22 11:44 | disposition home or self-care (01) | LOC: ANHCOVIDVC 11:43 | PROVIDERS: PCP Internal Medicine | DX: Z23 Encounter for immunization (principal) | CPT/HCPCS: 0001A; 91300 ==

== ENCOUNTER 2020-07-13 11:45 | Outpatient (CLI) | payer MEDICARE, OTHER, SELFPAY | END 2020-07-13 11:46 | disposition home or self-care (01) | LOC: ANHCOVIDVC 11:45 | PROVIDERS: PCP Internal Medicine | DX: Z23 Encounter for immunization (principal) | CPT/HCPCS: 0002A; 91300 ==